=== PATIENT | male | born 1950 ===

== ENCOUNTER 2018-07-30 15:05 | Outpatient (CLI) | payer OTHER ==
[~2018-07-30] VITALS: Ht 172.7 cm; Wt 78.9 kg
== END 2018-07-30 15:20 | disposition home or self-care (01) ==
LOC: OFIC 805 15:05
DX: K21.0 Gastro-esophageal reflux disease with esophagitis (principal); R09.81 Nasal congestion

== ENCOUNTER 2018-08-16 10:17 | Outpatient (CLI) | payer OTHER ==
[~2018-08-16] VITALS: Ht 152.4 cm; Wt 78.9 kg
== END 2018-08-16 10:30 | disposition home or self-care (01) ==
LOC: OFIC 805 10:17
DX: K21.0 Gastro-esophageal reflux disease with esophagitis (principal); R09.81 Nasal congestion